=== PATIENT | male | born 1995 | race Caucasian/White ===

== ENCOUNTER 2020-07-11 14:53 | Emergency (ER) | payer SELFPAY ==
[2020-07-11 14:57] VITALS: BP 166/94; PULSE 116; RESP 18; TEMP 36.4; O2SAT 91; BMI 29.5
--- NOTE | 2020-07-11 15:01 | CTR_ITS ---
PROCEDURE INFORMATION: Exam: CT Head Without Contrast Exam date and time: 07/11/2020 3:07 PM Age: 25 years old Clinical indication: Condition or disease; Convulsions or seizures; Unspecified; Patient HX: C/O single seizure w/o HX of seizures, LOVE or vision issues TECHNIQUE: Imaging protocol: Computed tomography of the head without contrast. Axial, coronal and sagittal reformatted images were created and reviewed. Radiation optimization: All CT scans at this facility use at least one of these dose optimization techniques: automated exposure control; mA and/or kV adjustment per patient size (includes targeted exams where dose is matched to clinical indication); or iterative reconstruction. COMPARISON: No relevant prior studies available. RADIATION DOSE METRICS: Total DLP (mGy-cm): 876.54 FINDINGS: Brain: No CT evidence of acute intracranial hemorrhage or acute territorial infarction. No significant mass effect or midline shift. Basal cisterns patent. Cerebral ventricles: Normal in size and configuration. Bones/joints: No acute osseous abnormality. Paranasal sinuses: Near complete polypoid opacification of the left maxillary sinus. Minimal ethmoid mucosal thickening. Mastoid air cells: Grossly unremarkable. Soft tissues: Grossly unremarkable. CT/CT head wo con* [id number]ION: 1[address] No CT evidence of acute intracranial pathology. 2. Additional findings, as above. Radiation Dose CTDIVOL = (mGy): DLP = 876.54 (mGy-cm)
--- NOTE | 2020-07-11 15:11 | ED_ITS ---
HPI - Seizure General: Chief Complaint: Seizure Stated Complaint: seizure Time Seen by Provider: 07/11/20 15:01 Source: patient Mode of arrival: ambulatory Limitations: no limitations History of Present Illness: HPI Narrative: 25-year-old male who states that roughly 1 hour ago he had a seizure that lasted 15 to 30 seconds. Seizure was witnessed by girlfriend. Patient denies any previous seizures. He states he now feels fine and has no complaints. He did have a short postictal period. MD complaint: seizure Onset (ago): hour(s) Associated symptoms: Deny chest pain, chills or fever(s) Review of Systems Const: Denies: fever(s), chills, body aches or change in appetite Eyes: Denies: blurry vision or eye discomfort ENMT: Denies: throat pain or dental pain Card: Denies: chest pain Resp: Denies: dyspnea GI: Denies: abdominal pain, nausea, vomiting or diarrhea : Denies: dysuria Musc: Denies: neck pain or back pain Skin/Breast: Denies: rash Neuro: Reports: seizure-like activity Psych: Denies: depression Valeriano/Lymph: Denies: easy bruising All/Imm: Denies: urticaria Physical Exam Const: COMMON NORMALS: no acute distress, patient oriented x3 and healthy appearing HENMT: COMMON NORMALS: normocephalic and atraumatic HEAD & SCALP: normocephalic and atraumatic Eye: COMMON NORMALS: Equal, round and reactive pupils present and EOMs intact bilaterally PUPIL: Yes Equal, round and reactive pupils present Neck/C-Spine: COMMON NORMALS: full ROM and supple Chest: COMMONS NORMALS: normal inspection of the chest and normal palpation of entire chest wall Resp: COMMON NORMALS: normal respiratory effort, No retractions, No use of accessory muscles and clear to auscultation bilaterally AUSCULTATION: clear to auscultation bilaterally Cardio: COMMON NORMALS: regular rate, regular rhythm and No murmurs present (Cardio) RATE: regular rate RHYTHM: regular rhythm GI: COMMON NORMALS: Normal to inspection, nondistended, normoactive bowel sounds present, Soft to palpation, non-tender and no masses PALPATION: Yes Soft to palpation Extremity: COMMON NORMALS: normal to inspection and full ROM Neuro: COMMON NORMALS: patient oriented x3, moves all extremities and no focal motor deficits Psych: COMMON NORMALS: mental status grossly normal, Normal thought process present and cooperative THOUGHT PROCESS: Normal thought process present Skin: COMMON NORMALS: no rashes or lesions noted and no wounds GENERAL SKIN EXAM: no rashes or lesions noted Course Vital Signs: Vital signs: Vital Signs Temperature 97.6 F 07/11/20 14:57 Pulse Rate 96 07/11/20 15:46 Respiratory Rate 16 07/11/20 15:46 Blood Pressure 144/76 07/11/20 15:46 Pulse Oximetry 96 07/11/20 15:46 MDM - Seizure Lab Data: Labs: Lab Results 07/11/20 Range/Units 15:10 Sodium 137 (136-145) mmol/L Potassium 3.6 (3.5-5.1) mmol/L Chloride 98 (98-107) mmol/L Carbon Dioxide 23 (22-29) mmol/L BUN 11 (6-20) mg/dL Creatinine 1.0 (0.7-1.2) mg/dL GFR Calculation 91.8 (90-130) mL/min Glucose 106 (65-115) mg/dL Calcium 9.6 (8.5-10.5) mg/dL Imaging Data^: CT Head: Radiologist's impression: [place] [address] CT Scan Report Signed Patient: Serge Guillen Unit #: [id number] : 1995 Age/Sex: 25 / M ADM Date: 07/11/20 Loc: ER Room/Bed: Attending Dr: Ordering Provider/Ordering MD: Hang Gillette MD Date of Service: 07/11/20 Procedure(s): CT head wo con* [id number] Accession Number(s): [id number] Report Number: [id number] PROCEDURE INFORMATION: Exam: CT Head Without Contrast Exam date and time: 07/11/2020 3:07 PM Age: 25 years old Clinical indication: Condition or disease; Convulsions or seizures; Unspecified; Patient HX: C/O single seizure w/o HX of seizures, LOVE or vision issues TECHNIQUE: Imaging protocol: Computed tomography of the head without contrast. Axial, coronal and sagittal reformatted images were created and reviewed. Radiation optimization: All CT scans at this facility use at least one of these dose optimization techniques: automated exposure control; mA and/or kV adjustment per patient size (includes targeted exams where dose is matched to clinical indication); or iterative reconstruction. COMPARISON: No relevant prior studies available. RADIATION DOSE METRICS: Total DLP (mGy-cm): 876.54 FINDINGS: Brain: No CT evidence of acute intracranial hemorrhage or acute territorial infarction. No significant mass effect or midline shift. Basal cisterns patent. Cerebral ventricles: Normal in size and configuration. Bones/joints: No acute osseous abnormality. Paranasal sinuses: Near complete polypoid opacification of the left maxillary sinus. Minimal ethmoid mucosal thickening. Mastoid air cells: Grossly unremarkable. Soft tissues: Grossly unremarkable. CT/CT head wo con* [id number] IMPRESSION: 1. No CT evidence of acute intracranial pathology. 2. Additional findings, as above. Discharge Plan Discharge Patient Disposition: Home Clinical Impression: Focal seizure Condition: Stable Prescriptions: No Action fluoxetine 10 mg Tablet 10 mg PO DAILY RF: 0 Discharge Orders: Discharge Order (Routine); Ordered 07/11/20 Ordered By: Hang Gillette Referrals: Cande Fierro MD [Physician] - 1-3 days Discharge Diet: Advance as tolerated Discharge Activity: Resume usual activity Patient Instructions: New-Onset Seizure in Adults (ED) Coding Level of Care Code ED Runstitching Machine Operator for Chg Fwd Exam Comprehensive
[2020-07-11] MEDS: LORazepam 2 mg/mL INJ 1 mL IM (15:24)
[2020-07-11 15:27] VITALS: BP 175/95; PULSE 104; RESP 17; O2SAT 95
[2020-07-11 15:46] VITALS: BP 144/76; PULSE 96; RESP 16; O2SAT 96
[2020-07-11 15:51] LABS: Anion Gap 19.6 (5-19); Blood Urea Nitrogen 11 mg/dL (6-20); Calcium 9.6 mg/dL (8.5-10.5); Carbon Dioxide 23 mmol/L (22-29); Chloride 98 mmol/L (98-107); Glomerular Filtration Rate 91.8 mL/min (90-130); Glucose 106 mg/dL (65-115); Osmolality Calculated 284 mOsm/kg (285-295); Potassium 3.6 mmol/L (3.5-5.1); Sodium 137 mmol/L (136-145)
--- NOTE | 2020-07-11 15:55 | W.ED.SEIZURE ---
HPI - Seizure General: Chief Complaint: Seizure Stated Complaint: seizure Time Seen by Provider: 07/11/20 15:01 Source: patient Mode of arrival: ambulatory Limitations: no limitations History of Present Illness: Seizure History: No Place: Home Physical Exam Const: COMMON NORMALS: no acute distress, patient oriented x3 and healthy appearing HENMT: COMMON NORMALS: normocephalic and atraumatic HEAD & SCALP: normocephalic and atraumatic Eye: COMMON NORMALS: Equal, round and reactive pupils present and EOMs intact bilaterally PUPIL: Yes Equal, round and reactive pupils present Neck/C-Spine: COMMON NORMALS: full ROM and supple Chest: COMMONS NORMALS: normal inspection of the chest and normal palpation of entire chest wall Resp: COMMON NORMALS: normal respiratory effort, No retractions, No use of accessory muscles and clear to auscultation bilaterally AUSCULTATION: clear to auscultation bilaterally Cardio: COMMON NORMALS: regular rate, regular rhythm and No murmurs present (Cardio) RATE: regular rate RHYTHM: regular rhythm GI: COMMON NORMALS: Normal to inspection, nondistended, normoactive bowel sounds present, Soft to palpation, non-tender and no masses PALPATION: Yes Soft to palpation Extremity: COMMON NORMALS: normal to inspection and full ROM Neuro: COMMON NORMALS: patient oriented x3, moves all extremities and no focal motor deficits Psych: COMMON NORMALS: mental status grossly normal, Normal thought process present and cooperative THOUGHT PROCESS: Normal thought process present Skin: COMMON NORMALS: no rashes or lesions noted and no wounds GENERAL SKIN EXAM: no rashes or lesions noted Course Vital Signs: Vital signs: Vital Signs Temperature 97.6 F 07/11/20 14:57 Pulse Rate 96 07/11/20 15:46 Respiratory Rate 16 07/11/20 15:46 Blood Pressure 144/76 07/11/20 15:46 Pulse Oximetry 96 07/11/20 15:46 MDM - Seizure Lab Data: Labs: Lab Results 07/11/20 Range/Units 15:10 Sodium 137 (136-145) mmol/L Potassium 3.6 (3.5-5.1) mmol/L Chloride 98 (98-107) mmol/L Carbon Dioxide 23 (22-29) mmol/L BUN 11 (6-20) mg/dL Creatinine 1.0 (0.7-1.2) mg/dL GFR Calculation 91.8 (90-130) mL/min Glucose 106 (65-115) mg/dL Calcium 9.6 (8.5-10.5) mg/dL Discharge Plan Discharge Patient Disposition: Home Clinical Impression: Focal seizure Condition: Stable Prescriptions: No Action fluoxetine 10 mg Tablet 10 mg PO DAILY RF: 0 Discharge Orders: Discharge Order (Routine); Ordered 07/11/20 Ordered By: Hang Gillette Referrals: Cande Fierro MD [Physician] - 1-3 days Discharge Diet: Advance as tolerated Discharge Activity: Resume usual activity Patient Instructions: New-Onset Seizure in Adults (ED) Coding Level of Care Code ED Volleyball Player for Daron Marie
[2020-07-11 16:05] VITALS: BP 144/76; PULSE 99; RESP 18; TEMP 36.4; O2SAT 95
--- NOTE | 2020-07-21 10:25 | DCPLANNER ---
account manager had message to speak with patient about scheduling a follow up appointment for patient. account manager called patient, at [phone], unable to speak with patient at this time, a voicemail was left for patient to return insurance case manager phone call.
== END 2020-07-11 16:05 | disposition home or self-care (01) ==
PROVIDERS: Emergency Provider Emergency Medicine
DX: G40.89 Other seizures (principal)
CPT/HCPCS: 12345; 70450; 80048; 96372; 99283; J2060